=== PATIENT | male | born 1960 ===

== ENCOUNTER 2024-05-21 12:45 | Inpatient (IN) | payer OTHER ==
[~2024-05-21] VITALS: Ht 172.7 cm; Wt 80.7 kg
[2024-05-21 14:14] VITALS: BP 131/85
[2024-05-21] MEDS ORDERED: ZEGERID 40 MG1 EACH PO (14:17)
[2024-05-21] MEDS ORDERED: TOPROL XL50 M1 PO (14:17)
[2024-05-21] MEDS ORDERED: FOSINOPRIL-HCT1 EACH PO (14:18)
[2024-05-21] MEDS ORDERED: LIPITOR20 MG PO (14:18)
[2024-05-21 15:24] LABS: RH POSITIVE
[2024-06-01] MEDS ORDERED: CEFAZOLIN SODIUM 1,000 MG VIAL ONE ×2 (09:31→18:47)
[2024-06-01] MEDS ORDERED: TRANEXAMIC ACID 100MG/1ML (1000MG) AMPUL IV ONE (09:31)
[2024-06-01] MEDS ORDERED: KETOROLAC TROMETHAMINE 60 MG VIAL IM ONE (13:14)
[2024-06-01] MEDS ORDERED: BUPIVACAINE HCL/MPF 0.5% 30ML VIAL ONE (13:14)
[2024-06-01] MEDS ORDERED: LIDOCAINE HCL 1%/EPINEPHRINE 20ML VIAL IJ ONE (13:14)
[2024-06-01] MEDS ORDERED: MORPHINE SULFATE 4 MG/ML CARTRIDGE IV PRN (16:45)
[2024-06-01] MEDS ORDERED: ONDANSETRON HCL 2 MG/ML VIAL IV PRN (16:45)
[2024-06-01] MEDS ORDERED: SODIUM CHLORIDE 0.45 % 1,000 ML IV SCH (16:45)
[2024-06-01] MEDS ORDERED: OxyCODONE HCL 5 MG TABLET (ROXICODONE) PO PRN (16:45)
[2024-06-01] MEDS ORDERED: CEFAZOLIN SODIUM 1,000 MG VIAL IV SCH (17:00)
[2024-06-01] MEDS ORDERED: GABAPENTIN 300 MG CAPSULE PO SCH (17:00)
[2024-06-01] MEDS ORDERED: ACETAMINOPHEN 500 MG GEL..CAP PO SCH (18:00)
[2024-06-02 00:19] VITALS: BP 107/59; O2SAT 96
[2024-06-02] MEDS ORDERED: CEFADROXIL500 MG PO (08:06)
[2024-06-02] MEDS ORDERED: PERCOCET 5-3251 EACH PO (08:06)
[2024-06-02] MEDS ORDERED: ELIQUIS2.5 MG PO (08:06)
[2024-06-02] MEDS ORDERED: APIXABAN 2.5 MG TABLET PO SCH (09:00)
[2024-06-02] MEDS ORDERED: SENNOSIDES 1 TAB TABLET PO SCH (09:00)
[2024-06-02] MEDS ORDERED: VITAMIN B COMPLEX 1 EACH PO SCH (12:59)
[2024-06-02] MEDS ORDERED: Cyanocobalamin/Mecobalamin 1 TAB.SL SL SCH (13:03)
[2024-06-02 15:11] LABS: HEMATOCRIT 36.1 % (39.0-48.0); MEAN CELL VOLUME 89.2 fL (80.0-100.00); MEAN CORPUSCULAR HEMOGLOBIN 29.8 pg (27.00-32.0); MEAN CORPUSCULAR HGB CONC 33.4 g/dl (32.0-36.0); PLATELET COUNT 260 K/uL (150-450); RED BLOOD COUNT 4.04 M/uL (4.00-6.00); RED CELL DISTRIBUTION WIDTH 13.7 % (11.5-14.5)
[2024-06-02 15:38] LABS: ALBUMIN 3.1 gm/dL (3.4-5.0); BILIRUBIN TOTAL 0.59 mg/dL (0.3-1.2); CALCIUM 8.4 mg/dL (8.5-10.1); CREATININE SERUM 1.15 mg/dL (0.70-1.30); GFR 63.82; POTASSIUM 4.47 mEq/L (3.5-5.1); TOTAL PROTEIN 6.1 gm/dL (6.4-8.2)
[2024-06-02 16:00] VITALS: BP 128/84; O2SAT 97
[2024-06-03 00:31] VITALS: BP 156/68; O2SAT 100
[2024-06-03 07:06] LABS: HEMATOCRIT 32.5 % (39.0-48.0); HEMOGLOBIN 11.2 g/dL (13-16.00); MEAN CELL VOLUME 87.8 fL (80.0-100.00); MEAN CORPUSCULAR HEMOGLOBIN 30.3 pg (27.00-32.0); MEAN CORPUSCULAR HGB CONC 34.6 g/dl (32.0-36.0); PLATELET COUNT 236 K/uL (150-450); RED BLOOD COUNT 3.71 M/uL (4.00-6.00); RED CELL DISTRIBUTION WIDTH 13.4 % (11.5-14.5)
[2024-06-03 08:00] VITALS: BP 115/71; O2SAT 92
[2024-06-03] MEDS ORDERED: IRON FUM,PS/FOLIC ACID/VITC/B3 1 CAP CAPSULE PO SCH (09:00)
[2024-06-03 16:30] VITALS: BP 120/66; O2SAT 98
[2024-06-04 04:17] VITALS: BP 130/78; O2SAT 95
== END 2024-06-04 09:33 | DRG 470 ==
LOC: O/R 06-01 05:48 → SURH 06-01 10:30 → SURG 06-01 17:22
PROVIDERS: Internal Medicine Hematology & Oncology; ADMIT Orthopaedic Surgery; ATTEND Orthopaedic Surgery
PROC: 0SRC0JZ Replacement of Right Knee Joint with Synthetic Substitute, Open Approach (ICD-10-PCS; principal; 2024-06-01 10:30)
DX: M17.11 Unilateral primary osteoarthritis, right knee (principal); M22.11 Recurrent subluxation of patella, right knee